=== PATIENT | female | born 1960 | race Caucasian/White ===

== ENCOUNTER 2018-05-18 06:39 | Day surgery (SDC) | payer OTHER ==
[2018-05-17 17:41] VITALS: BMI 31.4
[2018-05-18] VITALS (17 sets, daily range): BP systolic 113–155; BP diastolic 53–81; PULSE 66–97; RESP 16–20; Ht 144.8 cm; Wt 64.8 kg
[~2018-05-18] VITALS: Ht 144.8 cm; Wt 64.8 kg
[~2018-05-18 06:39] MED LIST: OXYC5CAP17 PO; TEMA22.5 PO
[2018-05-18] MEDS ORDERED: SEVOFLURANE 15 MIN ONE (07:00)
[2018-05-18] MEDS ORDERED: SOD CHLORIDE 0.9% 1,000 ML IV SCH (09:00)
[2018-05-18] MEDS ORDERED: CEFAZOLIN 2 GM/50 ML (PMX) 50 ML IVPB ONE (09:00)
[2018-05-18] MEDS ORDERED: ISOSULFAN BLUE 1% 5 ML INJ SC ONE (09:21)
--- NOTE | 2018-05-18 11:55 | PREAC ---
Date/Time of Note Date/Time of Note DATE: 05/18/18 TIME: 11:53 Anesthesia Eval and Record Evaluation Time Pre-Procedure Interview DATE: 05/18/18 TIME: 11:53 Age 57 Sex female NPO: 8 hrs Preoperative diagnosis right breast cancer Planned procedure right needle localization partial mastectomy and sentinel lymph node biopsy Past Medical History Past Medical History: Includes Pulm: COPD Musculoskeletal: Osteoarthritis Surgery & Anesthesia Issues No known issue Meds Anticoagulation: No Beta Saturnino within 24 hr: No Reason Beta Saturnino not given: Pt. not on B-Saturnino Reported Medications Temazepam* (Temazepam*) 22.5 Mg Capsule, 22.5 MG PO HS PRN for INSOMNIA, CAP 05/17/18 Oxycodone Hcl* (IR) (Oxycodone Hcl*) 5 Mg Capsule, 10 MG PO Q4H PRN for PAIN, CAP 05/17/18 Current Medications Sodium Chloride 1,000 ml @ 75 mls/hr [id number] IV ; Start 05/18/18 at 09:00; Stop 05/18/18 at 22:19 Meds reviewed: Yes Allergies Coded Allergies: No Known Drug Allergies (Verified Allergy, Unknown, 05/17/18) Allergies Reviewed: Yes Labs/Studies Labs Reviewed: Reviewed by anesthesiologist test: N/A Pre-procedure Exam Last vitals Vital Signs Date Temp Pulse Resp B/P (MAP) Pulse Ox O2 O2 Flow FiO2 Time Delivery Rate 05/18/18 97.8 66 16 122/77 97 Room Air 10:40 (92) Airway: Adequate mouth opening, Adequate thyromental dist Mallampati: Mallampati II Teeth: Abnormal (edentulous) Lung: Normal Heart: Normal ASA Physical Status ASA physical status: 2 Emergency: None Planned Anesthetic General/MAC: LMA Planned Pain Management Parenteral pain med Pre-operative Attestations Prior to commencing anesthesia and surgery, the patient was re-evaluated, there was verification of: *The patient's identity *The results of appropriate recent lab work and preoperative vital signs *The above evaluation not changing prior to induction *Anesthetic plan, risk benefits, alternative and complications discussed with patient/family; questions answered; patient/family understands, accepts and wishes to proceed. THUY STOVER MD May 18, 2018 11:55
[2018-05-18] MEDS ORDERED: OXYCODONE/ACETAMINOPHEN (5/325) TAB PO PRN (12:00)
[2018-05-18] MEDS ORDERED: PROCHLORPERAZINE 10 MG INJ IV PRN (12:00)
[2018-05-18] MEDS ORDERED: ONDANSETRON 4 MG INJ IV PRN (12:00)
[2018-05-18] MEDS ORDERED: FENTAnyl 50 MCG/ML VIAL IV PRN ×3 (12:00)
[2018-05-18] MEDS ORDERED: DIPHENHYDRAMINE 50 MG INJ IV PRN (12:00)
[2018-05-18] MEDS ORDERED: HYDROmorphONE 1 MG/5 ML IV SYRINGE IV PRN ×2 (12:00)
[2018-05-18] MEDS ORDERED: MEPERIDINE 25 MG INJ IV PRN (12:00)
[2018-05-18] MEDS ORDERED: LIDOCAINE 2% (SDV) 5 ML INJ ONE (12:07)
[2018-05-18] MEDS ORDERED: MIDAZOLAM 1 MG/ML 2 ML INJ ONE ×2 (12:07→12:19)
[2018-05-18] MEDS ORDERED: PROPOFOL 20 ML ONE (12:07)
[2018-05-18] MEDS ORDERED: FENTAnyl 50 MCG/ML VIAL ONE (12:07)
[2018-05-18] MEDS ORDERED: ONDANSETRON 4 MG INJ ONE (12:26)
[2018-05-18] MEDS ORDERED: CEFAZOLIN 1 GM INJ ONE ×2 (12:26)
[2018-05-18] MEDS ORDERED: DEXAMETHASONE 4 MG/ML 5 ML INJ ONE (12:26)
[2018-05-18] MEDS ORDERED: FAMOTIDINE 20 MG INJ ONE (12:26)
[2018-05-18] MEDS ORDERED: EPHEDrine SULFATE 50 MG/5 ML SYG ONE (12:40)
--- NOTE | 2018-05-18 13:09 | SIPON ---
Date/Time of Note Date/Time of Note DATE: 05/18/18 TIME: 13:07 Operative Report Preoperative Diagnosis Invasive cancer right breast Postoperative Diagnosis Same Operation/Procedure Performed Right needle directed partial mastectomy and axillary dissection utilizing sentinel lymph node technique Surgeon see signature line accounts receivable assistant Dr Ford Second assist: KYLE CARDENAS MD Anesthesia: general Estimated blood loss: 10 - 50 ml's Transfusion Required none Specimen Right partial mastectomy specimen and sentinel lymph node with additional axillary nodes Grafts/Implants none Complications none FARIDA FELIZ MD May 18, 2018 13:09
[2018-05-18] MEDS ORDERED: HYDROCODONE/APAP (7.5/325) TAB PO PRN (13:30)
--- NOTE | 2018-05-18 13:49 | OPR ---
DATE OF OPERATION: 05/18/2018 PREOPERATIVE DIAGNOSIS: Invasive cancer, right breast. POSTOPERATIVE DIAGNOSIS: Invasive cancer, right breast. OPERATION PERFORMED: Right needle-directed partial mastectomy and axillary dissection utilizing sent inel lymph node technique. ANESTHESIA: General. ANESTHESIOLOGIST: Tracey Wong MD SURGEON: Arturo Avila MD CASKET LINER: Steve Ford MD and Nadeem Davidson MD INDICATIONS FOR PROCEDURE: The patient is a 57-year-old female who underwent screening mammography a nd was found to have a suspicious lesion in the upper outer quadrant of her right breast. Subsequent core biopsy confirmed invasive cancer. She was counseled as to need for definitive surgical managem ent. She consented and was scheduled for surgery. DESCRIPTION OF PROCEDURE: The patient was brought to the operating theater, placed under general ane sthesia. The right breast and axillary region was prepped and draped in usual sterile fashion. The localization wire was identified. It was in the upper outer quadrant of the right breast. Approxima tely 4 mL of 1% Lymphazurin blue dye were injected peritumorally. The breast was then gently massage d for 12 minutes. An incision of 3 to 4 cm was made in the right axillary hairline. Subcutaneous ti ssue was dissected with cautery down through the clavipectoral fascia. A dye-stained lymphatic was i dentified. It was traced to what appeared to be an obvious sentinel node. There were several other relatively enlarged nodes in this area. The sentinel node and then additional nodes were then resect ed using LigaSure device. Specimen was sent for intraoperative frozen section analysis performed by attending pathologist, Dr. Zahida Andino. [place] node was negative for evidence of obvious metastat ic disease. Specimen was then sent for permanent pathologic analysis. No further lymph nodes were t aken due to the fact that sentinel lymph node was negative. The wound was irrigated. Minimal bleedi ng was controlled with cautery. A #10 flat Pipo-Gomes drain was then brought through the right mi d axillary line, cut to size, laid within the axilla. It was secured in place with 3-0 nylon suture in the standard fashion and the skin was then reapproximated with a 4-0 Vicryl suture in subcuticular fashion. Attention was then directed to performing the partial mastectomy. A curvilinear incision was made in the upper outer quadrant of the breast in the region of the previously placed localizatio n wire. Subcutaneous tissue was dissected with cautery. The skin edges were then elevated with skin hooks and wide circumferential dissection of the tissue associated with the wire then took place, ta mike great care to attempt to ensure adequate margin. The specimen was then sent for permanent patho logic analysis. The wound was irrigated. Minimal bleeding was controlled with cautery. A #10-Frenc h Pipo-Gomes drain was brought through the right mid axillary line, cut to size and laid within th e wound cavity. It was secured in place with 3-0 nylon suture in a standard fashion. The skin was t hen reapproximated with 4-0 Vicryl sutures in deep dermal interrupted fashion followed by final skin approximation with 5-0 PDS sutures in subcuticular fashion and Dermabond was applied to both wounds. The patient tolerated procedure well. Estimated blood loss was 20 mL. There were no complications and the patient was transported in stable condition to the recovery room. Dictated By: ARTURO WHITEHEAD/JOHNNY Conf#: [id number] DID#: [id number]
--- NOTE | 2018-05-18 14:01 | PAC ---
Date/Time of Note Date/Time of Note DATE: 05/18/18 TIME: 14:01 Post-Anesthesia Notes Post-Anesthesia Note Last documented vital signs Vital Signs Date Temp Pulse Resp B/P (MAP) Pulse Ox O2 O2 Flow FiO2 Time Delivery Rate 05/18/18 97.8 66 16 122/77 97 Room Air 10:40 (92) Activity: WNL Respiratory function: WNL Cardiovascular function: WNL Mental status: Baseline Pain reasonably controlled: Yes Hydration appropriate: Yes Nausea/Vomiting absent: Yes Comments BP: 124/70 HR: 98 RR: 15 SaO2: 100% T: 98 THUY STOVER MD May 18, 2018 14:01
[2018-05-18] MEDS: HYDROmorphONE 1 MG/5 ML IV SYRINGE IV PRN ×2 (14:29→15:01)
== END 2018-05-18 15:50 | disposition home or self-care (01) ==
LOC: SDS 06:39
PROVIDERS: ATTEND Surgery Surgical Oncology
DX: C50.911 Malignant neoplasm of unspecified site of right female breast (principal)
CPT/HCPCS: 19301; 38500; 38792; 71045; 88307; 88331; J0690; J1100; J1170; J2175; J2250; J2405; J3010; Z7512; Z7610; Q9968